=== PATIENT | male | born 1995 | race Caucasian/White ===

== ENCOUNTER 2017-10-24 23:02 | Emergency (ER) | payer MEDICAID ==
[~2017-10-24] VITALS: Ht 185.4 cm; Wt 76.0 kg
[~2017-10-24 23:02] MED LIST: HYDR-569 PO; ONDA4TAB6 PO; POLY17PO12 PO
[2017-10-24] MEDS ORDERED: EPIN0.3P8 IM (23:59)
[2017-10-24] MEDS ORDERED: PRED20TA PO (23:59)
[2017-10-25] MEDS ORDERED: dexamethasone 4mg tablet PO ONE
[2017-10-25] MEDS ORDERED: famotidine 10mg tablet PO ONE
[2017-10-25 00:32] VITALS: BP 119/58
== END 2017-10-25 00:34 | disposition home or self-care (01) ==
LOC: ER 23:03
DX: T78.40XA Allergy, unspecified, initial encounter (principal); X58.XXXA Exposure to other specified factors, initial encounter
CPT/HCPCS: 99283; J8540